=== PATIENT | female | born 1995 | race African-American/Black ===

== ENCOUNTER 2017-03-10 04:48 | Emergency (ER) | payer BC, OTHER ==
[~2017-03-10] VITALS: Ht 162.6 cm; Wt 65.0 kg
[2017-03-10 05:00] VITALS: TEMP 36.8; Ht 162.6 cm; Wt 65.0 kg
[2017-03-10] MEDS ORDERED: SODIUM CHLORIDE 0.9% 1000ML 1,000 ML IV STA (05:04)
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
[2017-03-10 05:47] LABS: ALT/SGPT 27 U/L (12-78); AST/SGOT 23 U/L (15-37); BLOOD UREA NITROGEN 11 mg/dl (7-18); BUN/CREATININE RATIO 13.5 (10-20); CALCIUM 8.7 mg/dl (8.5-10.1); CARBON DIOXIDE 24 mmol/L (21-32); CHLORIDE 113 mmol/L (98-107); CREATININE 0.78 mg/dl (0.60-1.20); GLUCOSE 100 mg/dl (70-99); POTASSIUM 3.7 mmol/L (3.5-5.1); SODIUM 144 mmol/L (136-145)
[2017-03-10 05:50] LABS: ALKALINE PHOSPHATASE 122 U/L (45-117)
--- NOTE | 2017-03-10 09:57 | EMERGENCY ROOM VISIT NOTE ---
ED Visit Note I received this patient at the change of shift from Dr. Satya Samayoa pending a more sober state. The patient was awake and ambulatory. She was discharged to the care of a friend. [facility] discharge instructions provided.
[2017-03-10 10:03] VITALS: BP 105/79; PULSE 125; O2SAT 100
== END 2017-03-10 10:04 | disposition home or self-care (01) ==
LOC: C.EDA 04:51
DX: F10.129 Alcohol abuse with intoxication, unspecified (principal); Y90.8 Blood alcohol level of 240 mg/100 ml or more; R00.0 Tachycardia, unspecified